=== PATIENT | male | born 1970 | race Caucasian/White ===

== ENCOUNTER 2021-01-16 13:29 | Outpatient (RCR) | payer OTHER, SELFPAY | END 2021-03-31 23:59 | LOC: IMMUN 13:29 | PROVIDERS: PCP Family Medicine; Visit Provider Family Medicine | DX: Z23 Encounter for immunization (principal) | CPT/HCPCS: 0001A; 0002A; 91300 ==

== ENCOUNTER 2022-11-30 18:49 | Emergency (ER) | payer OTHER, SELFPAY ==
[2022-11-30 18:50] VITALS: BP 160/96; PULSE 68; RESP 14; TEMP 36.6; O2SAT 98; BMI 26.7
--- NOTE | 2022-11-30 19:35 | EKG12_ITS ---
Test Reason : CP Blood Pressure : / mmHG Vent. Rate : 064 BPM Atrial Rate : 064 BPM P-R Int : 172 ms QRS Dur : 100 ms QT Int : 406 ms P-R-T Axes : 041 052 018 degrees QTc Int : 418 ms Normal sinus rhythm Normal ECG Confirmed by LEXA KENYON, MICHAEL ([id number]), magazine editor GITA CARRILLO ([id number]) on 12/02/2022 11:33:20 AM Referred By: SHARRON Confirmed By:MICHAEL LINDQUIST MD
[2022-11-30] MEDS: Aspirin 81 MG TAB.CHEW 324 MG PO (19:58)
[2022-11-30 20:00] VITALS: BP 134/92; PULSE 62; RESP 18; O2SAT 95
[2022-11-30 20:20] LABS: Absolute Lymphocyte Count 1.55 X10^3/uL (0.83-4.51); Absolute Neutrophil Count 5.8 X10^3/uL (2.0-7.7); Basophil# 0.04 X10^3/uL; Basophil% 0.5 % (0-1); Eosinophil# 0.07 X10^3/uL; Eosinophils% 0.9 % (0-5); Hematocrit 46.7 % (40-54); Hemoglobin 15.6 g/dL (13.0-16.5); Lymphocyte # 1.55 X10^3/ul (0.83-4.51); Lymphocyte % 19.1 % (19-41); Mean Corp Hgb Conc 33.4 g/dL (32-36); Mean Corpuscular Hgb 29.3 pg (27.0-32.0); Mean Corpuscular Volume 87.6 fL (80-94); Monocyte# 0.65 X10^3/uL; NRBC Flagged by Analyzer 0 % (0-5); Neutrophil # 5.78 X10^3/uL (2.7-7.7); Neutrophil % 71.1 % (47-70); Platelet Count 290 K/mm3 (150-450); RBC Distribution Width CV 12.8 % (11.6-14.6); RBC Distribution Width SD 41.2 fl (35.1-43.9); Red Blood Count 5.33 M/mm3 (4.6-6.2); White Blood Count 8.1 K/mm3 (4.4-11.0)
[2022-11-30 20:30] LABS: Anion Gap 5 (5-15); BUN 18 mg/dL (7-18); BUN/Creat Ratio 14.5 RATIO (10-20); Chloride 106 mmol/L (98-107); Creatinine, Serum 1.24 mg/dL (0.70-1.30); EST Glomerular Filtration Rate 65 mL/min (>60); Est Glom Filt Rate - Afr Amer 78 mL/min (>60); Estimated Creatinine Clearance 72.53 ml/min; Glucose 95 mg/dL (74-106); Potassium 3.8 mmol/L (3.5-5.1); Sodium Level 141 mmol/L (136-145); Troponin-I HS 6 pg/mL (3.0-78.0)
--- NOTE | 2022-11-30 20:50 | RAD_ITS ---
INDICATION: Chest pain EXAMINATION/TECHNIQUE: X-RAY - XR Chest 1 View COMPARISON: None. FINDINGS: LUNGS: No consolidation, edema or effusion. No pneumothorax. MEDIASTINUM AND CARDIOVASCULAR STRUCTURES: Cardiac silhouette not enlarged. Central airways and mediastinal contour are unremarkable. RAD/Chest 1 View (Portable) IMPRESSION: No radiographic evidence of acute cardiopulmonary disease. Electronically Signed: Germain Palacios MD at 21:16 EST ,
[2022-11-30 22:34] VITALS: BP 140/89; PULSE 59; RESP 18; O2SAT 95
--- NOTE | 2022-11-30 22:49 | EDS_ITS ---
HPI History of Present Illness Chief Complaint: Chest Pain Narrative Narrative: 52-year-old male presenting with chest pain. He describes it as intermittent. This in the left upper part of his chest and he also complains of left trapezial pain. Is ongoing for 10 days but is not constant. Patient denies any cardiac history. No DVT history or PE history. He is not currently in pain. He is not short of breath. No fever, chills, cough. He is a non-smoker. He states he has been very active and working out and this is not affecting him. He states that he noted his blood pressure was a little high earlier and this freaked him out. He states he has not seen a primary care physician in many years. This is elective. Prior symptoms of this in the past and was diagnosed with costochondritis PE Risk Factors: Negative for Recent Travel/Surgery, Recent Immobilization, Prior DVT or PE, Cancer or OCP + Smoking + >/=35 PFSH PFSH Allergy/AdvReac Type Severity Reaction Status Date / Time meperidine [From Demerol] AdvReac Nausea Verified 11/30/22 18:50 Social History Smoking Status: Never smoker ROS ROS ED Constitutional Constitutional ED: Denies chills, fever(s) or sweats Eyes Eyes: Denies blurry vision or change in vision ENT ENT ED: Denies ear pain or sore throat Cardiovascular Cardiovascular: Reports chest pain; Denies palpitations or racing heartbeat Respiratory/Chest Respiratory/Chest: Denies cough, dyspnea or sputum Gastrointestinal Gastrointestinal: Denies abdominal pain, constipation, diarrhea, nausea or vomiting Genitourinary Genitourinary ED: Denies dysuria, hematuria or urinary frequency Musculoskeletal Musculoskeletal: Denies arthralgias, myalgias or neck pain Integumentary Denies abscess, Abrasions or rash Neurologic Neurologic: Denies headache(s), paresthesias or weakness Psychiatric Psychiatric: Denies anxiety, depression, suicidal ideation or suicidal thoughts Endocrine Endocrinology: Denies polydipsia or polyuria EXAM Physical Exam Const Vital Signs: 11/30/22 18:50 11/30/22 20:00 11/30/22 20:00 Temperature 98 F Temperature Source Temporal Pulse Rate 68 62 Respiratory Rate 14 18 Respiratory Effort Blood Pressure 160/96 H 134/92 H Blood Pressure Mean 117 106 Pulse Ox 98 95 Oxygen Delivery Method Room Air Room Air Room Air 11/30/22 20:00 11/30/22 22:34 Temperature Temperature Source Pulse Rate 59 L Respiratory Rate 18 Respiratory Effort Normal Non-Labored Blood Pressure 140/89 H Blood Pressure Mean 106 Pulse Ox 95 Oxygen Delivery Method Room Air General Appearance ED: Negative for pallor HEENT Reports normocephalic, head/scalp atraumatic and moist mucous membranes Eyes PERRL and EOMs intact bilaterally Neck no lymphadenopathy and supple Neck Narrative: Some tenderness in the trapezius on the left. No midline spinal pain, deformity or step-off of the cervical spine. Chest Wall inspection of chest normal and palpation of chest normal Resp normal respiratory effort and clear to auscultation bilaterally Auscultation: Negative for rales, rhonchi or wheezes Cardio regular rate and regular rhythm GI normal to inspection, nondistended, normoactive bowel sounds and non-distended Auscultation: normoactive bowel sounds Palpation: soft Narrative: Deferred Extremity normal to inspection General Extremety ED: Yes edema and tenderness General Extremity: edema Neuro oriented x3 and CN's II-XII intact bilaterally Sensorium / Orientation: alert Motor Exam: strength 5/5 throughout Psych mental status grossly normal Attitude: No agitated Skin no rashes or lesions noted and no wounds General Skin Exam: Negative for jaundice or pallor Heart Score History: Slightly/Non-Suspicious ECG: Normal Age: >45 - <65 years Risk Factors: No Risk Factors Troponin: </= Normal Limit Score: 1 MDM MDM MDM Narrative Medical decision making narrative: Patient with intermittent pain for 10 days. HEART score of 1. Differential fauzia gnosis includes but not limited to ACS, PE, pneumonia, costochondritis.I have low suspicion for PE and the patient is PERC negative. Patient's blood pressure slightly elevated at 160/96 but after resting in the bed he is now 140/89. I have low suspicion for aortic dissection. CBC to assess hemoglobin, white blood cell count, differential. This is essentially normal. BMP to assess renal function, electrolytes, glucose, anion gap and this is essentially normal as well. High-sensitivity troponin is 6. Chest x-ray on my interpretation shows no acute cardiopulmonary process. Radiology interpreted this and agrees. I do not believe he needs a delta troponin symptoms ongoing for 10 days and it does not sound cardiac in nature. I did recommend that he follow-up with his PCP to recheck his blood pressure on an outpatient basis. He is to keep a blood pressure diary. Lab Data Labs: Laboratory Results - last 24 hr 11/30/22 11/30/22 19:03 19:03 WBC 8.1 RBC 5.33 Hgb 15.6 Hct 46.7 MCV 87.6 MCH 29.3 MCHC 33.4 RDW Std Deviation 41.2 RDW Coeff of Sigifredo 12.8 Plt Count 290 MPV 10.0 Immature Gran % (Auto) 0.400 Neut % (Auto) 71.1 H Lymph % (Auto) 19.1 [place] % (Auto) 8.0 Eos % (Auto) 0.9 Baso % (Auto) 0.5 Absolute Neuts (auto) 5.8 Absolute Lymphs (auto) 1.55 Nucleated RBC % 0 Sodium 141 Potassium 3.8 Chloride 106 Carbon Dioxide 30.0 Anion Gap 5 BUN 18 Creatinine 1.24 Estim Creat Clear Calc 72.53 Est GFR (MDRD) Af Amer 78 Est GFR (MDRD) Non-Af 65 BUN/Creatinine Ratio 14.5 Glucose 95 Calcium 9.0 Troponin I High Sens 6 Radiography Diagnostic Testing: Clinical Impression(s) from Imaging Studies Chest X-Ray 11/30/22 20:50 IMPRESSION: No radiographic evidence of acute cardiopulmonary disease. Electronically Signed: Germain Palacios MD at 21:16 EST Reading Location ID and State: [facility] / [place] Tel , Service support , Discharge Plan Triage Chief Complaint: Chest Pain ED Provider: Abhijit Jackson Dx/Rx/DC Orders Instructions: ED Chest Pain, Noncardiac (Child) Primary Care Provider: Osmani Marcum Referrals: Osmani Marcum MD [Primary Care Provider] - Disposition Disposition: Home, Self Care
== END 2022-11-30 22:41 | disposition home or self-care (01) ==
PROVIDERS: Emergency Provider Student in an Organized Health Care Education/Training Program; PCP Family Medicine; Visit Provider Student in an Organized Health Care Education/Training Program
DX: R07.9 Chest pain, unspecified (principal)
CPT/HCPCS: 71045; 80048; 84484; 85025; 93005; 99285; J7030; A4216

== ENCOUNTER 2024-05-10 19:16 | Emergency (ER) | payer OTHER, SELFPAY ==
[2024-05-10] VITALS (7 sets, daily range): BP systolic 113–153; BP diastolic 73–96; PULSE 85–110; RESP 16–18; TEMP 36.9–39.2; O2SAT 95–99; BMI 25.4
[2024-05-10 19:56] LABS: Bacteria 0 SEEN /hpf (None Seen); Mucous, Urine 0 SEEN /hpf (<or=2+); Squamous Epithelial Cells - UA 0 SEEN /hpf (0-5)
[2024-05-10] MEDS: 0.9% Normal Saline (1000mL) 1,000 ML 999 ML IV (19:56)
[2024-05-10 20:00] LABS: Color, Urine Yellow (Yellow); Glucose, Dipstick Normal (Normal); Ketone-Dipstick 15 mg/dl (Negative); Leukocyte Esterase-Dipstick 25 /ul (Negative); Nitrite-Dipstick Negative (Negative); Occult Blood-Urine 150 /ul (Negative); Protein-Dipstick 30 mg/dl (Negative); Urine Bilirubin Dipstick Negative (Negative); Urine Clarity Sl. Cloudy (Clear); Urine Urobilinogen 1 mg/dl (Normal)
[2024-05-10 20:19] LABS: Absolute Lymphocyte Count 0.52 X10^3/uL (0.83-4.51); Absolute Neutrophil Count 11.6 X10^3/uL (2.0-7.7); Basophil# 0.03 X10^3/uL; Basophil% 0.2 % (0-1); Hematocrit 41.5 % (40-54); Hemoglobin 13.8 g/dL (13.0-16.5); Lymphocyte # 0.52 X10^3/ul (0.83-4.51); Lymphocyte % 4.1 % (19-41); Mean Corp Hgb Conc 33.3 g/dL (32-36); Mean Corpuscular Hgb 28.8 pg (27.0-32.0); Mean Corpuscular Volume 86.6 fL (80-94); Mean Platelet Vol. 9.3 fl (6.2-12.0); Monocyte# 0.48 X10^3/uL; Monocyte% 3.8 % (0-10); NRBC Flagged by Analyzer 0 % (0-5); Neutrophil # 11.56 X10^3/uL (2.7-7.7); Neutrophil % 91.6 % (47-70); POSITIVE DIFFERENTIAL YES; Platelet Count 242 K/mm3 (150-450); RBC Distribution Width CV 13.9 % (11.6-14.6); RBC Distribution Width SD 43.6 fl (35.1-43.9); Red Blood Count 4.79 M/mm3 (4.6-6.2); White Blood Count 12.6 K/mm3 (4.4-11.0)
--- NOTE | 2024-05-10 20:19 | EX.ED.GUMALE ---
HPI <SAUMYA Kim - Last Filed: 05/10/24 22:27> History of Present Illness Chief Complaint: Complaint Narrative Narrative: Patient presenting today due to fever, chills, sweats that started today. He reports that he had a fever of 103 ?F today. He began having dysuria and increased urinary frequency on Tuesday, he did go to urgent care yesterday where they diagnosed him with a UTI and started him on Keflex. He has had 4 doses total of the Keflex. 3 weeks ago he had a UTI and was placed on a course of Bactrim for 10 days which he completed. His symptoms seem to go away until Tuesday when they returned. PMH includes hypertension. He denies any abdominal pain, nausea, vomiting, and diarrhea. PFSH <SAUMYA Kim - Last Filed: 05/10/24 22:27> PFSH Medical History History of skin cancer History of cellulitis Medical History no medical history Home Medications ?Medication ?Instructions ?Recorded ?Last Taken ?Type cephalexin 500 mg capsule 500 mg PO 4X/DAY 05/10/24 Unknown History levofloxacin 750 mg tablet 750 mg PO DAILY #14 tabs 05/10/24 Unknown Rx lisinopril 10 mg tablet 10 mg PO DAILY 05/10/24 Unknown History Allergy/AdvReac Type Severity Reaction Status Date / Time meperidine (From Demerol) AdvReac Nausea Verified 11/30/22 18:50 Family History no significant family his Surgical History Hx of appendectomy Surgical History no surgical history Social History Smoking Status: Never smoker ROS <SAUMYA Kim - Last Filed: 05/10/24 22:27> ROS ED Constitutional Constitutional ED: Reports chills, fever(s) and sweats Cardiovascular Cardiovascular: Denies chest pain Respiratory/Chest Respiratory/Chest: Denies cough or dyspnea Gastrointestinal Gastrointestinal: Denies abdominal pain, diarrhea, nausea or vomiting Genitourinary Genitourinary ED: Reports dysuria and urinary frequency Musculoskeletal Musculoskeletal: Denies arthralgias, back pain or myalgias Integumentary Denies rash Neurologic Neurologic: Denies weakness EXAM <SAUMYA Kim - Last Filed: 05/10/24 22:27> Physical Exam Const Vital Signs: 05/10/24 19:17 05/10/24 19:18 05/10/24 19:21 Temperature 100.1 F H 100.1 F H Temperature Source Temporal Oral Pulse Rate 110 H 110 H Respiratory Rate 17 17 Respiratory Effort Normal Non-Labored Blood Pressure 135/83 H 135/83 H Blood Pressure Mean 100 100 Pulse Ox 99 99 Oxygen Delivery Method Room Air Room Air 05/10/24 19:32 05/10/24 20:18 05/10/24 21:00 Temperature 100.8 F H 102.6 F H 101.7 F H Temperature Source Oral Oral Oral Pulse Rate 108 H 101 H Respiratory Rate 18 17 Respiratory Effort Blood Pressure 153/96 H 126/79 H Blood Pressure Mean 115 94 Pulse Ox 96 95 Oxygen Delivery Method Room Air Room Air Positive well nourished, well developed and no apparent distress General Appearance ED: well developed HEENT Reports normocephalic and head/scalp atraumatic Mouth ED: Yes moist mucous membranes normal Eyes PERRL and EOMs intact bilaterally Neck full ROM and supple Chest Wall inspection of chest normal Resp normal respiratory effort and clear to auscultation bilaterally Cardio regular rate and regular rhythm GI soft to palpation, non-tender, non-distended and no masses Bladder / Kidney Exam: No CVA tenderness Back/Spine normal ROM and normal to inspection Extremity normal to inspection and full ROM Neuro oriented x3, CN's II-XII intact bilaterally, moves all extremities, no focal motor deficits and no sensory deficits noted Sensorium / Orientation: awake and alert Psych mental status grossly normal and thought process normal Skin no rashes or lesions noted and no wounds <Dr. Morgan Ayon DO - Last Filed: 05/10/24 22:32> Physical Exam Const Vital Signs: 05/10/24 19:17 05/10/24 19:18 05/10/24 19:21 Temperature 100.1 F H 100.1 F H Temperature Source Temporal Oral Pulse Rate 110 H 110 H Respiratory Rate 17 17 Respiratory Effort Normal Non-Labored Blood Pressure 135/83 H 135/83 H Blood Pressure Mean 100 100 Pulse Ox 99 99 Oxygen Delivery Method Room Air Room Air 05/10/24 19:32 05/10/24 20:18 05/10/24 21:00 Temperature 100.8 F H 102.6 F H 101.7 F H Temperature Source Oral Oral Oral Pulse Rate 108 H 101 H Respiratory Rate 18 17 Respiratory Effort Blood Pressure 153/96 H 126/79 H Blood Pressure Mean 115 94 Pulse Ox 96 95 Oxygen Delivery Method Room Air Room Air [facility] <SAUMYA Kim - Last Filed: 05/10/24 22:27> [facility] Narrative Medical decision making narrative: Patient presenting today due to urinary symptoms, fevers, chills, and sweats. Urinary symptoms started on Tuesday, he started Keflex yesterday after being diagnosed with UTI at urgent care. He also had a UTI 3 weeks ago and was started on Bactrim. He reports that this grew E. coli. He is febrile here with a temperature of 100.8 ?F, tachycardic at 110 bpm. Therefore sepsis order set was initiated. He was given IV fluids and a dose of Rocephin. He did spike a 102.6 ?F fever here, he was given ibuprofen. He has a WBC of 12.6, lactic acid WNL, sodium 132, creatinine 1.39, bilirubin 1.6. Chest x-ray and COVID are pending. Lab Data Attestation: I reviewed the patient's lab results. Labs: Laboratory Results - last 24 hr 05/10/24 05/10/24 19:30 19:55 WBC 12.6 H RBC 4.79 Hgb 13.8 Hct 41.5 MCV 86.6 MCH 28.8 MCHC 33.3 RDW Std Deviation 43.6 RDW Coeff of Sigifredo 13.9 Plt Count 242 MPV 9.3 Immature Gran % (Auto) 0.300 Neut % (Auto) 91.6 H Lymph % (Auto) 4.1 L [place] % (Auto) 3.8 Eos % (Auto) 0.0 Baso % (Auto) 0.2 Absolute Neuts (auto) 11.6 H Absolute Lymphs (auto) 0.52 L Nucleated RBC % 0 PT 15.7 H INR 1.3 APTT 34.3 Sodium 132 L Potassium 3.9 Chloride 98 Carbon Dioxide 27.0 Anion Gap 7 BUN 17 Creatinine 1.39 H Estim Creat Clear Calc 63.95 Est GFR (MDRD) Af Amer 68 Est GFR (MDRD) Non-Af 56 L BUN/Creatinine Ratio 12.2 Glucose 124 H Lactic Acid 1.0 Calcium 9.0 Total Bilirubin 1.60 H AST 28 ALT 32 Alkaline Phosphatase 84 Total Protein 7.4 Albumin 3.5 Globulin 3.9 Albumin/Globulin Ratio 0.9 Urine Color Yellow Urine Clarity Sl. Cloudy Urine pH 8.0 Ur Specific [place] 1.010 Urine Protein 30 H Urine Glucose (UA) Normal Urine Ketones 15 H Urine Occult Blood 150 H Urine Nitrite Negative Urine Bilirubin Negative Urine Urobilinogen 1 H Ur Leukocyte Esterase 25 H Urine RBC 0-5 SEEN Urine WBC 5-10 SEEN Ur Squamous Epith Cells 0 SEEN Urine Bacteria 0 SEEN Urine Mucus 0 SEEN Radiography Diagnostic Testing: Clinical Impression(s) from Imaging Studies Chest X-Ray 05/10/24 21:20 IMPRESSION: No radiographic evidence of acute cardiopulmonary disease. Electronically Signed: Bridger Joseph MD at 22:00 EDT Reading Location ID and State: [facility] / [place] Tel , Service support , <Dr. Morgan Ayon, DO - Last Filed: 05/10/24 22:32> MDM History & Record Review Discussion w/independent historian: Patient and Significant other Lab Data Labs: Laboratory Results - last 24 hr 05/10/24 05/10/24 19:30 19:55 WBC 12.6 H RBC 4.79 Hgb 13.8 Hct 41.5 MCV 86.6 MCH 28.8 MCHC 33.3 RDW Std Deviation 43.6 RDW Coeff of Sigifredo 13.9 Plt Count 242 MPV 9.3 Immature Gran % (Auto) 0.300 Neut % (Auto) 91.6 H Lymph % (Auto) 4.1 L [place] % (Auto) 3.8 Eos % (Auto) 0.0 Baso % (Auto) 0.2 Absolute Neuts (auto) 11.6 H Absolute Lymphs (auto) 0.52 L Nucleated RBC % 0 PT 15.7 H INR 1.3 APTT 34.3 Sodium 132 L Potassium 3.9 Chloride 98 Carbon Dioxide 27.0 Anion Gap 7 BUN 17 Creatinine 1.39 H Estim Creat Clear Calc 63.95 Est GFR (MDRD) Af Amer 68 Est GFR (MDRD) Non-Af 56 L BUN/Creatinine Ratio 12.2 Glucose 124 H Lactic Acid 1.0 Calcium 9.0 Total Bilirubin 1.60 H AST 28 ALT 32 Alkaline Phosphatase 84 Total Protein 7.4 Albumin 3.5 Globulin 3.9 Albumin/Globulin Ratio 0.9 Urine Color Yellow Urine Clarity Sl. Cloudy Urine pH 8.0 Ur Specific [place] 1.010 Urine Protein 30 H Urine Glucose (UA) Normal Urine Ketones 15 H Urine Occult Blood 150 H Urine Nitrite Negative Urine Bilirubin Negative Urine Urobilinogen 1 H Ur Leukocyte Esterase 25 H Urine RBC 0-5 SEEN Urine WBC 5-10 SEEN Ur Squamous Epith Cells 0 SEEN Urine Bacteria 0 SEEN Urine Mucus 0 SEEN Radiography Diagnostic Testing: Clinical Impression(s) from Imaging Studies Chest X-Ray 05/10/24 21:20 IMPRESSION: No radiographic evidence of acute cardiopulmonary disease. Electronically Signed: Bridger Joseph MD at 22:00 EDT , Treatment and Re-Evaluation Narrative: I have personally performed a face to face assessment of the patient and have reviewed the IGNACIO Note. I performed a substantive portion of the visit including all aspects of the following. My licea findings include: History is 53-year-old male presenting to the emergency room with fever. Patient was diagnosed with urinary tract infection earlier this month was treated with Bactrim. He was seen in urgent care yesterday started on Keflex for dysuria fever and leukocyte esterase on dip pending urinalysis. His previous urine culture showed E. coli. Patient is uncircumcised. He has had some long car trips recently to [place] into [place]. He was treated in March and initially with Keflex and then changed to clindamycin for cellulitis of the right leg. He has had a normal PSA this year. Exam is patient is A&O x 3. He is well-appearing. He is febrile and tachycardic. He has normal blood pressure. The prostate particularly the right lobe is tender to palpation and boggy. Medical Decison Making patient's white count is mildly elevated at 12.6 with 91.6 neutrophils. Lactic acid is normal. INR is 1.3 creatinine is normal total bilirubin was 1.6 normal LFTs. Blood and urine cultures were obtained. Urinalysis is showing 5-10 white cells no bacteria my independent interpretation the chest x-ray is no acute process. COVID influenza swabs are negative. He received IV fluids acetaminophen and Rocephin. I spoke at length with the patient and his . Clinically I do suspect that he has prostatitis. We talked about admitting him to the hospital for sepsis/severe prostatitis versus changing him to Levaquin and following up on the blood cultures and aggressive fever control. He would prefer to go home which I think is a reasonable option as he is otherwise well-appearing. Patient is very reliable and understands return instructions. He understands he may be called back to the hospital based on blood cultures or worsening physical exam/symptoms. Discharge Plan Triage Chief Complaint: Complaint Other Complaint: Fever ED Midlevel Provider: Dayanna Raman ED Provider: Morgan Ayon Dx/Rx/DC Orders Clinical Impression: Prostatitis Prescriptions: New levofloxacin 750 mg tablet 750 mg PO DAILY Qty: 14 0RF No Action cephalexin 500 mg capsule 500 mg PO 4X/DAY lisinopril 10 mg tablet 10 mg PO DAILY Primary Care Provider: Osmani Marcum Referrals: Osmani Marcum MD [Primary Care Provider] - Print Language: Iranian
[2024-05-10 20:31] LABS: Red Blood Cells-Urine 0-5 SEEN /hpf (0-5); White Blood Cells 5-10 SEEN /hpf (0-5)
[2024-05-10] MEDS: Ceftriaxone 1 GM/50 ML BAG IV (20:31)
[2024-05-10 20:34] LABS: International Normalized Ratio 1.3; Prothrombin Time (Protime)PT. 15.7 SECONDS (11.7-14.9)
[2024-05-10 20:35] LABS: Partial Thromboplast Time 34.3 Seconds (24.1-36.2)
[2024-05-10] MEDS: Ibuprofen 200 MG Tablet 400 MG PO (20:43)
[2024-05-10 20:45] LABS: ALB/GLOB Ratio 0.9 RATIO (0.9-2.4); AST(SGOT) 28 U/L (15-37); Alanine Aminotransfer ALT/SGPT 32 U/L (16-61); Albumin, Serum 3.5 g/dL (3.2-5.0); Alkaline Phosphatase 84 U/L (45-117); Anion Gap 7 (5-15); BUN 17 mg/dL (7-18); BUN/Creat Ratio 12.2 RATIO (10-20); Chloride 98 mmol/L (98-107); Creatinine, Serum 1.39 mg/dL (0.70-1.30); EST Glomerular Filtration Rate 56 mL/min (>60); Est Glom Filt Rate - Afr Amer 68 mL/min (>60); Estimated Creatinine Clearance 63.95 ml/min; Globulin 3.9 g/dL (2.2-4.2); Glucose 124 mg/dL (74-106); Potassium 3.9 mmol/L (3.5-5.1); Protein, Total 7.4 g/dL (6.4-8.2); Sodium Level 132 mmol/L (136-145)
--- NOTE | 2024-05-10 21:20 | RAD_ITS ---
EXAM: XR CHEST, 2 VIEWS CLINICAL INDICATION: fever TECHNIQUE: Frontal and lateral views of the chest. COMPARISON: 11/30/2022 FINDINGS: LUNGS AND PLEURAL SPACES: Unremarkable. No consolidation or edema. No pneumothorax. No effusion. HEART: Unremarkable. Cardiac silhouette not enlarged. MEDIASTINUM: Central airways and mediastinal contour are unremarkable. BONES/JOINTS: Unremarkable. No acute fracture. SOFT TISSUES: Unremarkable. RAD/Chest PA and Lateral IMPRESSION: No radiographic evidence of acute cardiopulmonary disease. Electronically Signed: Bridger Joseph MD at 22:00 EDT ,
[2024-05-10] MEDS: levoFLOXacin 750 MG Tablet PO (22:37)
== END 2024-05-10 22:42 | disposition home or self-care (01) ==
PROVIDERS: Physician Assistant; Emergency Provider Emergency Medicine; PCP Family Medicine; Visit Provider Emergency Medicine
DX: N41.9 Inflammatory disease of prostate, unspecified (principal); R30.0 Dysuria; Z79.899 Other long term (current) drug therapy
CPT/HCPCS: 71046; 80053; 81001; 83605; 85025; 85610; 85730; 87040; 87086; 87811; 96365; 99285; J7030; A4216

== ENCOUNTER 2024-07-10 10:59 | Emergency (ER) | payer OTHER, SELFPAY ==
[2024-07-10 10:59] VITALS: BP 148/87; PULSE 63; RESP 14; TEMP 36.8; O2SAT 98; BMI 25.2
--- NOTE | 2024-07-10 11:34 | CT_ITS ---
STUDY: CTA CHEST REASON FOR EXAM: Male, 54 years old. Elevated dimer, PE RADIATION DOSAGE (If Supplied By Facility): CTDIvol = ( 15.82 ) mGy, DLP = ( 474.56 ) mGycm TECHNIQUE: The examination was performed with the intravenous administration of IV 100mL Isovue-370. Post-processing of the angiographic images was performed, with multiplanar reformation and 3D reconstruction. Individualized dose optimization techniques were used for this CT. COMPARISON: None. FINDINGS: Normal enhancement of the main pulmonary artery and right and left pulmonary arteries. Normal enhancement of the bilateral peripheral pulmonary arteries. There is no demonstrated pulmonary embolism. There is mild atherosclerotic calcification of the aortic arch with tortuosity. There is no demonstrated aortic dissection. Normal heart and pericardium. Normal mediastinum. Normal hilar regions. Normal visualized trachea and bronchi. The lungs are well expanded. Normal pulmonary parenchyma. Normal pleura. Normal chest wall structures. Normal osseous structures. There is a 1.2 cm x 1.4 cm cyst in the medial left lobe of the liver. CT/CTA Chest W/WO Contrast IMPRESSION: Normal CTA chest examination, without a demonstrated pulmonary embolism or arterial dissection. Electronically Signed: Manan Wells MD at 13:17 EDT ,
--- NOTE | 2024-07-10 11:35 | EX.ED.DYSGE1 ---
HPI History of Present Illness Chief Complaint: Abn Labs Narrative Narrative: Chief complaint and HPI: Elevated D-dimer. Patient is a 54-year-old male with history of HTN presents for CTA chest given elevated D-dimer. Patient states for the past 2 weeks he has been having intermittent, sharp left-sided chest pain. He states he has a history of costochondritis so assumed it was this. Has not improved with Tylenol. Followed up with PCP yesterday who ordered basic labs and D-dimer. Dimer was elevated and patient was referred to the ED by PCP office for CTA chest to assess for PE. Patient denies any diaphoresis, headache, shortness of breath, nausea, vomiting, abdominal pain. He states that the pain actually improves with exertion. Denies a history of DVT/PE, blood clotting disorder, recent trauma or surgery, unilateral leg swelling, known malignancy, travel. Review of systems: See HPI Medications: As listed on the chart Allergies: As listed on the chart PFSH: Per chart Vital signs: As listed on the chart. Reviewed. Physical exam: Gen: A&O x3, NAD Head: Normocephalic, atraumatic Eyes: No sclera icterus, conjunctiva clear ENT: Moist mucous membranes Neck: Trachea midline, No JVD, full range of motion CV: RRR, no murmurs, chest pain is reproducible -it is pinpoint at the costal margin of about rib 4, no peripheral edema or calf pain Resp: Lungs CTA BL, no w/r/c GI: Abd soft, non-distended, non-tender, no r/r/g Musc: Full ROM, no deformity Skin: Warm, dry Neuro: Alert, oriented, grossly intact, sensation intact Psych: Cooperative, appropriate mood and affect [facility] Medical History History of skin cancer History of cellulitis Medical History no medical history Home Medications ?Medication ?Instructions ?Recorded ?Last Taken ?Type cephalexin 500 mg capsule 500 mg PO 4X/DAY 05/10/24 Unknown History levofloxacin 750 mg tablet 750 mg PO DAILY #14 tabs 05/10/24 Unknown Rx lisinopril 10 mg tablet 10 mg PO DAILY 05/10/24 Unknown History Allergy/AdvReac Type Severity Reaction Status Date / Time meperidine (From Demerol) AdvReac Nausea Verified 07/10/24 11:00 Surgical History Hx of appendectomy Surgical History no surgical history Social History Smoking Status: Never smoker EXAM Physical Exam Const Vital Signs: 07/10/24 10:59 07/10/24 11:11 Temperature 98.3 F Temperature Source Temporal Pulse Rate 63 Respiratory Rate 14 Respiratory Pattern Normal Blood Pressure 148/87 H Blood Pressure Mean 107 Pulse Ox 98 Oxygen Delivery Method Room Air MDM MDM MDM Narrative Medical decision making narrative: 54-year-old male with history of HTN presents for evaluation of CTA chest to rule out PE after elevated D-dimer. Has been having intermittent chest pain for 2 weeks. Chest pain is reproducible. On chart review, patient just had labs obtained yesterday. CBC shows a WBC 5.21, hemoglobin 15, platelets 290. CMP with a sodium of 139, potassium 1.3, chloride 102, bicarb 26, BUN 15, creatinine 0.96, glucose 91. No transaminitis. TSH unremarkable. D-dimer elevated at 690. Given patient's physical exam as well as HPI, differential diagnosis includes but is not limited to costochondritis, musculoskeletal pain, pleurisy, PE. Suspect less likely CAD. Given the patient just had lab results I do not think any need to repeat this. CT requesting BNP for CTA. This was ordered. Will get a troponin as well as EKG. Patient confirmed understand the plan. BMP and troponin unremarkable. EKG reviewed see below. CTA chest without PE or dissection. At this point in time, unclear etiology for patient's chest pain. However given that there is point tenderness and the pain is reproducible. I suspect that it may be secondary to costochondritis or muscle strain. Patient was updated of all results and confirmed understanding. He was educated that he can take ibuprofen and Tylenol as needed for the pain. Follow-up with his PCP. He confirmed understanding. Patient stable to discharge home. EKG: Interpreted by me/EM physician: EKG shows normal sinus rhythm without any acute ischemic changes. Heart rate 61. Impression: 1. Elevated D-dimer 2. Chest pain Lab Data Labs: Laboratory Results - last 24 hr 07/10/24 11:45 Sodium 139 Potassium 3.7 Chloride 104 Carbon Dioxide 28.0 Anion Gap 7 BUN 15 Creatinine 1.11 Estim Creat Clear Calc 79.14 Est GFR (MDRD) Af Amer 88 Est GFR (MDRD) Non-Af 73 BUN/Creatinine Ratio 13.5 Glucose 92 Calcium 9.4 Troponin I High Sens 4 Radiography Diagnostic Testing: Clinical Impression(s) from Imaging Studies Chest CTA 07/10/24 11:34 IMPRESSION: Normal CTA chest examination, without a demonstrated pulmonary embolism or arterial dissection. Electronically Signed: Manan Wlels MD at 13:17 EDT , Discharge Plan Triage Chief Complaint: Abn Labs ED Provider: Isaias Thompson Dx/Rx/DC Orders Instructions: D-Dimer Prescriptions: No Action cephalexin 500 mg capsule 500 mg PO 4X/DAY lisinopril 10 mg tablet 10 mg PO DAILY levofloxacin 750 mg tablet 750 mg PO DAILY Qty: 14 0RF Primary Care Provider: Osmani Marcum Referrals: Osmani Marcum MD [Primary Care Provider] - 3-5 Days Activity Restrictions/Additional Instructions: Ibuprofen as needed for pain. Follow-up with primary care physician. Print Language: Telugu Disposition Disposition: Home, Self Care
[2024-07-10 12:16] LABS: Anion Gap 7 (5-15); BUN 15 mg/dL (7-18); BUN/Creat Ratio 13.5 RATIO (10-20); Calcium,Total 9.4 mg/dL (8.5-10.1); Chloride 104 mmol/L (98-107); Creatinine, Serum 1.11 mg/dL (0.70-1.30); EST Glomerular Filtration Rate 73 mL/min (>60); Est Glom Filt Rate - Afr Amer 88 mL/min (>60); Estimated Creatinine Clearance 79.14 ml/min; Glucose 92 mg/dL (74-106); Potassium 3.7 mmol/L (3.5-5.1); Sodium Level 139 mmol/L (136-145); Troponin-I HS 4 pg/mL (3.0-78.0)
[2024-07-10 13:45] VITALS: BP 139/76; PULSE 71; RESP 15; TEMP 36.4; O2SAT 97
== END 2024-07-10 13:47 | disposition home or self-care (01) ==
PROVIDERS: Emergency Provider Surgery; PCP Family Medicine; Visit Provider Surgery
DX: R07.9 Chest pain, unspecified (principal); R79.1 Abnormal coagulation profile; I10 Essential (primary) hypertension; Z85.828 Personal history of other malignant neoplasm of skin; Z79.899 Other long term (current) drug therapy
CPT/HCPCS: 71275; 80048; 84484; 93005; 99283; Q9967; A4216